=== PATIENT | female | born 2000 | race African-American/Black ===

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

== ENCOUNTER 2021-03-20 09:00 | Outpatient (RCR) | payer BC, SELFPAY ==
--- NOTE | 2021-03-20 09:00 | BH.SGPN.GN ---
Behaviors/Verbalizations/Mental Status: []Eye contact is good. Motor activity is appropriate. Appearance is casual. Speech is appropriate. Mood is depressed. Affect is congruent. Thoughts are linear and logical. No evidence of psychosis. Reviewed daily symptom tracker sheet with no reports of suicidal ideations, plan, or intent. Client Response/Progress/Benefit: []Client was engaged throughout group session, and reported her emotion as ?tired and detached?. This is the client's first day of IOP treatment. Client discussed attending different IOP treatments in the past, and wanting to brush up on past skills and work on motivation. Client identifies utilizing opposite action to help cope with being unmotivated. Client appeared to benefit from supportive group environment. Will continue IOP treatment to improve depression management skills to increase functioning. Narrative Note: []
--- NOTE | 2021-03-20 10:08 | BH.SGPN.GN ---
Behaviors/Verbalizations/Mental Status: []Eye contact is good. Motor activity is appropriate. Appearance is casual. Speech is Appropriate. Mood is depressed. Affect is flat, constricted. Thoughts are linear and logical. No evidence of psychosis. Client Response/Progress/Benefit: []Pt new to IOP tx, however did well to remain an active participant in group discussion AEB taking notes and providing some input throughout. Attentive during psychoeducation. Pt attentive as peers added their perspective on the definition of stigma as it relates to mental health. Pt participated in interactive group discussion on the topic and the potential impacts of stigma on seeking help, confidence, and relationships with others. Pt reflected that mental health stigma has ?kept me from taking the breaks that I need during school?. Reflected beliefs she allows stigma to maintain thoughts of ?I?m not a good enough.?. Benefited from increased awareness of mental health stigma and how it could impact patient. Will continue IOP to improve mood stability, increase healthy coping and engagement in activities she enjoys, and improve functioning in school. Narrative Note: []
--- NOTE | 2021-03-20 11:10 | BH.SGPN.GN ---
Behaviors/Verbalizations/Mental Status: []Client alert and oriented, casually dressed and groomed. Eye contact fair. Motor activity appropriate. Speech within normal limits. Affect flat, mood depressed. Thoughts linear, logical, no signs of hallucinations or delusions. Client Response/Progress/Benefit: []Client engaged participant AEB client providing some input during small group discussion, taking notes and listening attentively to others. Group brainstormed strategies to combat social and perceived stigma which included: educating others, no longer using negative language about mental illness, being vulnerable with supports, and attending support groups. Client shared one things she can do to combat stigma is to educate herself more on the topic of stigma and her mental health. Appeared to benefit from increasing awareness of strategies to combat stigma. Client?s first day of IOP. Will continue IOP tx to prevent decompensation, gain healthy coping skills, and improve functioning. Narrative Note: []
--- NOTE | 2021-03-20 14:33 | BH.COMM ---
Communication Note - Communication with Client Communication Note: met with pt to complete initial paperwork. No significant changes since pre-admission screening. Completed [place] Suicide Screening. Pt presents as low risk. Pt denies any active suicidal ideations, plan, or intent as of 03/20/21. Pt has history of self-injurious behaviors but denies any self-injury since middle school. Pt admits to having fleeting passive thoughts of , but she denies any thoughts of wanting to kill herself. Pt denies any history of suicide attempts. Future oriented and protective factors noted. No access to weapons. Does not present as imminent risk due to no active SI, plan, or intent.
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
--- NOTE | 2021-03-25 10:10 | BH.SGPN.GN ---
Behaviors/Verbalizations/Mental Status: []Client alert and oriented, well dressed and groomed. Eye contact fair. Motor activity appropriate. Speech within normal limits. Affect flat, mood depressed. Thoughts linear, logical, no signs of hallucinations or delusions. Client Response/Progress/Benefit: []Client responded well to session AEB client participating and group discussion and listening attentively to others. Group was primarily education based, with client participating in small group discussion regarding traits that promote resilience. Client?s group discussed keeping things in perspective, maintaining a hopeful outlook, self-care, and taking decisive action as strategies to increase resilience. Client appeared to benefit from increasing awareness of strategies to increase personal resilience. Progress noted in client providing insight during small group discussion. Will continue IOP treatment to prevent decompensation and increase depression management skills to increase functioning. Narrative Note: []
--- NOTE | 2021-03-25 11:12 | BH.SGPN.GN ---
Behaviors/Verbalizations/Mental Status: []Client alert and oriented, casually dressed and groomed. Eye contact good. Motor activity appropriate. Speech within normal limits. Affect constricted, mood irritable. Thoughts linear, logical, no signs of hallucinations or delusions. Client Response/Progress/Benefit: []Client responded well to session AEB completing the resilience worksheet provided. Client participated in the discussion of how each resiliency component can help increase personal resiliency and worked cooperatively with group to identify strategies to enhance each of the components discussed. Client reported she feels she is doing well with implementing the resilience component of ?self-awareness? and ?moving towards your goals.? Client reports she wants to improve the personal resilience component of ?making connections.? Client reports she prefers to do things alone, but this can also be a barrier to mental wellness. Client seemed to benefit from discussing strategies for improving personal resilience and identifying resilience traits client already possesses. Will continue IOP tx to reduce depressive symptoms, gain healthy coping skills, and improve school-related functioning. Narrative Note: []
[2021-03-25 11:25] VITALS: BP 131/75; PULSE 82
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
--- NOTE | 2021-03-25 13:20 | BH.DR.ITP ---
Initial Treatment Plan Patient Information Visit Information: ADMISSION DATE: EXPECTED LOS: 4-6 weeks Problems/Symptoms Problem #1:: Depression Symptom:: Sadness, low motivation, hopelessness, guilt, anhedonia, decreased concentration, recent passive thoughts of and passive suicidal ideation Problem #2:: Anxiety Symptom:: Rumination, worry, avoidance, nightmares, hypervigilance
--- NOTE | 2021-03-27 10:15 | BH.SGPN.GN ---
Behaviors/Verbalizations/Mental Status: []Client alert and oriented, casually dressed and groomed. Eye contact good. Motor activity appropriate. Speech within normal limits. Affect constricted, mood dysthymic. Thoughts linear, logical, no signs of hallucinations or delusions. Client Response/Progress/Benefit: []Pt frequently nodding during group discussions and attentive during psychoeducation. Took notes as group identified obstacles or potholes that hinder our ability to communicate in stressful situations. Group identified the following obstacles; shutting down, mind-reading, lashing out, and becoming defensive. Pt provided insight on how emotion and mood can impact effective communication. Pt took an active role during the activity and processed how she felt anxious to have her back to peers. Pt shared she also does not like working with people, but she used coping skills in the moment to manage frustration. Benefited from increased awareness on how our emotions impact our communication. Will continue in IOP to increase emotional regulation skills, reduce depressive symptoms, and improve functioning. Narrative Note: []
--- NOTE | 2021-03-27 13:18 | BH.MDN ---
Multi-Disciplinary Note - Note 60-min Individual Time Started:: 09:10 Date: 03/27/21 Purpose of session/treatment goals addressed:: Purpose of session was to assess pt's current symptoms and stressors, gather background information and identify goals for IOP level of care. Eye Contact:: Fair Motor Activity:: Restless Appearance:: Casual Speech:: Soft Mood:: Depressed Affect:: Flat Thoughts:: Linear, Logical, No evidence of hallucinations/delusions noted Staff Interventions:: rapport building, treatment planning, goal setting Client Response:: Pt stated she is not sure she will continue IOP because she feels she already knows the material being covered in group sessions. Pt reported she is willing to continue IOP for one more week before making her final decision on whether to continue program. Pt stated she has sought treatment because she is struggling academically this year due to her mental health. Pt reported she struggles with processing her problems which often leads to avoidance. Pt stated at the start of the fall her great aunt and uncle both . Pt reported has not processed this deaths. PT stated she knows it is probably impacting her but at this time doesn't feel emotional about it. Pt reported she has had to drop 2 classes this semester due to not doing well in the classes. Pt stated she moved her independent study class to next semester. Pt reported she struggles with attending her two classes consistently. Pt reported she has previously been diagnosed with Borderline Personality Disorder and she believes her symptoms are impacting her severely. Pt stated she did DBT group program 3 years ago which helped. Pt reported she struggles with connecting with people in friendships, often coming off detached and distant. Pt stated she is in a romantic relationship for over a year which she identifies as her first healthy relationship. Pt reported she would like to work on being able to have more meaningful friendships. Pt stated goals for treatment would be to improve ability to go to classes and complete assignments so she passes her two classes this semester. Pt identifeid goal for the week is to attend 3 out of 4 classes, have meeting with one of her professors about assignment extensions and creating plan for one of her class projects. Provided pt with homework about attachment. Risks/Concerns:: denies suicidal/homicidal ideation, plan or intention to date. Progress Toward Goals/Plan:: Progess limited. Pt continues to struggle with depressed and anxious symptoms impacting academic and social functioning. Pt's lack of committment to IOP could be barrier to treatment. Pt to continue IOP to increase utilization of healthy coping skills, challenge distorted thoughts and prevent decompensation. Time Stopped:: 10:10
--- NOTE | 2021-03-27 13:34 | BH.MTP_ITS ---
Master Treatment Plan - Patient Information Program Physician:: Dr. Garrett Primary Therapist:: Meg Granda, [facility] - Psychiatric Diagnoses Psychiatric Diagnoses:: 1. Major depressive disorder, recurrent, severe without psychosis. 2. Generalized anxiety disorder. 3. Rule out borderline personality disorder. 4. Primary support, school issues Diagnosis Code(s):: F33.2 - Estimated LOS Estimated LOS (in weeks):: 6 Problem/Goal #1 - Problem/Goal #1 Stated Goal:: Client will increase mood stability and improve management of depressive symptoms. Description of Barriers: pt is unsure about commitment to the program because previously did a IOP in high school and didn't know if she would benefit from another IOP. Pt's negative thought patterns, avoidance behavior, distorted thoughts, low motivation and feelings of detachment. Functional Impact: The patient is a 20-year-old single female with a history of ADHD, anxiety, depression and borderline personality disorder who was referred to the [facility] health IOP [facility] [place] for worsening symptoms of depression. Identified stressors as an aunt and uncle in recent months and school. She currently had 2 drops several classes in college due to her depression and anxiety but is achieving good grades in the classes she is still taking. Pt admits that she feels depressed or down more than 10 months out of the year in the past few years. She feels hopeless and guilty for skipping classes. She has been isolating herself and admits to anhedonia, low energy, decreased concentration, and passive thoughts of . She endorses that she is a worrier and ruminates negatively. She has been avoiding social circumstances. She is having panic attacks about 1 every other week. - Objectives Objective #1 Stated Objective: Client will learn and utilize 2-3 healthy coping strategies to better manage depressive and mood symptoms as shown by reduced DSM-5 scores. Interventions: Therapist will teach client various coping skills to manage symptoms and give tangible resources to use to regulate emotions. Therapist will use cognitive restructuring techniques and help client gain awareness of negative thoughts that reinforce depressive cycles. Discharge Criteria: Client will have met this goal when can identify at least 2 healthy coping skills and report successful management of mood with use of skills. Target Date: 05/01/21 Review Date: 04/17/21 Objective #2 Stated Objective: Pt will decrease depressive symptoms AEB pt?s score on the DSM 5 cross-cutting measure and improve pt?s daily functioning. Interventions: Through groups and individual therapy, pt will be provided with education on cognitive distortions, mistaken beliefs, and identifying and combating negative self-talk. Therapist will assist pt with getting back into the activities she once enjoyed as well as increasing healthy coping strategies. Discharge Criteria: Pt will have met this goal when pt?s score on the DSM 5 cross cutting measure for depression has been decreased and per pt?s report daily functioning has improved. Target Date: 05/01/21 Review Date: 04/17/21 Problem/Goal #2 - Problem/Goal #2 Stated Goal:: Client will reduce overall frequency, intensity, and duration of anxiety to improve functioning. Description of Barriers: pt is unsure about commitment to the program because previously did a IOP in high school and didn't know if she would benefit from another IOP. Pt's negative thought patterns, avoidance behavior, distorted thoughts, low motivation and feelings of detachment. Functional Impact: The patient is a 20-year-old single female with a history of ADHD, anxiety, depression and borderline personality disorder who was referred to the [facility] behavioral health IOP program by her outpatient psychiatrist in [place] for worsening symptoms of depression. Identified stressors as an aunt and uncle in recent months and school. She currently had 2 drops several classes in college due to her depression and anxi ety but is achieving good grades in the classes she is still taking. Pt admits that she feels depressed or down more than 10 months out of the year in the past few years. She feels hopeless and guilty for skipping classes. She has been isolating herself and admits to anhedonia, low energy, decreased concentration, and passive thoughts of . She endorses that she is a worrier and ruminates negatively. She has been avoiding social circumstances. She is having panic attacks about 1 every other week. - Objectives Objective #1 Stated Objective: Client will learn and implement 2-3 calming skills to reduce overall anxiety and manage anxiety. Interventions: Therapist will teach the client calming/relaxation skills (e.g., muscle relaxation, mindful breathing) and how to discriminate better between relaxation and tension; teach the client how to apply these skills to her daily life. Discharge Criteria: Client will have met this goal when can identify and utilize at least 2 healthy coping skills that successfully help manage anxious symptoms. Target Date: 05/01/21 Review Date: 04/17/21 Objective #2 Stated Objective: Pt will decrease anxious symptoms AEB pt?s score on the DSM 5 cross-cutting measure improve pt?s daily functioning. Interventions: Through groups and individual therapy, pt will be provided education about anxiety?s impact on body and common physiological reaction to anxiety. Therapist will teach pt appropriate breathing techniques and build healthy coping skills to manage daily anxieties. Discharge Criteria: Pt will have met this goal when pt?s score on the DSM 5 cross cutting measure for anxiety has been decreased and per pt?s report daily functioning has improved. Target Date: 05/01/21 Review Date: 04/17/21
--- NOTE | 2021-03-30 09:05 | BH.SGPN.GN ---
Behaviors/Verbalizations/Mental Status: [] Eye contact is good. Motor activity is appropriate. Appearance is casual. Speech is Appropriate. Mood is depressed/irritable. Affect is flat. Thoughts are linear and logical. No evidence of psychosis. Reviewed daily check in sheet and pt reports 1/5 for suicidal thoughts and 0/5 for intent. Client Response/Progress/Benefit: [] Pt participated at times during group discussion on improving sleep. Attentive. Daily symptom tracker notes 3/5 for depression and anxiety. Mental health wins included Weekend was OK. Shared that she completed skills such as opposite action and spent time with friends. Was more social than usual. Poor sleep last night. Ruminating on upcoming mid-term assignments. Reports that she has no motivation or energy to complete her school work. Group provided some feedback and suggestions. Minimal progress noted. Benefited from group support, encouragement, and feedback. Will continue in IOP to maintain safety, increase healthy coping, and prevent decompensation. Narrative Note: []
--- NOTE | 2021-03-30 09:58 | BH.SGPN.GN ---
Behaviors/Verbalizations/Mental Status: []Client alert and oriented, casually dressed and groomed. Eye contact fair. Motor activity appropriate. Speech within normal limits. Affect flat, mood depressed. Thoughts linear, logical, no signs of hallucinations or delusions. Client Response/Progress/Benefit: []Client responded well to session AEB contributing to group discussion and listening attentively to others. Client discussed not being able to function as well when she does not perform self-care. Client connected with boundaries as a type of self care, stating that without boundaries there would be no healthy relationships. Client participated in small group discussion regarding debunking the myths of self-care. Client?s group discussed the myths of having more important things to do, self care taking too much time, and self care has to be fun. Client?s group discussed making self care a priority, choosing self care activities that can be done while doing other things, and that self care is not always fun as the realities of self care. Client appeared to benefit from further understanding of the importance of self-care and options. Progress noted in client sharing personal examples in group. Will continue IOP treatment to increase comfortability with being vulnerable, and prevent decompensation. Narrative Note: []
--- NOTE | 2021-03-30 11:01 | BH.SGPN.GN ---
Behaviors/Verbalizations/Mental Status: []Client alert and oriented, casually dressed and groomed. Eye contact fair to good. Motor activity appropriate. Speech within normal limits. Affect constricted, mood depressed, irritable. Thoughts linear, logical, no signs of hallucinations or delusions. Client Response/Progress/Benefit: []Client mostly engaged participant AEB taking notes and providing input when prompted during discussion. This is progress as pt often struggles with engaging in discussion portions of session. Attentive throughout group discussion on the various areas of self-care, benefits, and types of self-care activities for each area. Client completed worksheet which identified current self-care practices and what self-care activities client wants to start using. Client noted she is doing best in the areas of financial, physical, and psychological self-care. Indicated that she would like to begin improving in spiritual self-care. Identified that she could begin doing so by beginning to challenge herself daily to do new or thought-provoking activities. Noted this would help to ground her and give her something healthy to focus on, allow for personal growth, and begin to improve moments of happiness. Appeared to benefit from completing the self-care evaluation and gaining insights into current self-care practices, as well as identifying areas in which she would like to improve upon. Will continue IOP tx to continue to promote mood stability, continue to improve self-care and stress management skills, as well as prevent decompensation. Narrative Note: []
--- NOTE | 2021-04-01 09:03 | BH.SGPN.GN ---
Behaviors/Verbalizations/Mental Status: []Client alert and oriented, casually dressed and groomed. Eye contact fair to good. Motor activity appropriate. Speech within normal limits. Affect congruent, mood anxious, depressed. Thoughts linear, logical, no signs of hallucinations or delusions. Reviewed client?s symptom tracker, risk for suicidal ideation reported as a 1/5 which is consistent with pt baseline, denies plan or intent as of 04/01/21. Client Response/Progress/Benefit: []Client receptive to session, attentive and willing to participate throughout. Client reports feeling ?anxious and tired this morning. Shared that this is both a positive and a stressor as she is tired because she has begun attending her classes more consistently but is stressed as now she feels she has less energy due to waking up earlier. Reports sleep has been an ongoing stress. Went on to discuss making efforts to improve communication with others. Noted this is also a positive as well as stressor, indicating that communicating is hard for her due to struggling with emotion regulation. Shared that she has a hard time finding the skills that help her effectively maintain emotionally regulated which in turn impedes ability to effectively communicate in the moment. Open to supportive feedback provided by the group. Shared trying to use opposite action, music, and walking away when feeling overwhelmed but has had limited success. Pt struggles with believing that her coping skills are going to be helpful in the moment which may impede her ability to effectively utilize them. Appeared to benefit from supportive group environment. Recommended continued IOP tx to improve mood stability and healthy communication, as well as prevent decompensation. Narrative Note: []
--- NOTE | 2021-04-01 10:10 | BH.SGPN.GN ---
Behaviors/Verbalizations/Mental Status: []Client alert and oriented, casually dressed and groomed. Eye contact fair. Motor activity appropriate. Speech within normal limits. Affect constricted, mood depressed. Thoughts linear, logical, no signs of hallucinations or delusions. Client Response/Progress/Benefit: []Client responded well to session AEB client contributing to session and listening attentively to others. Client nodded and appeared connected to the topic of perspective. Client participated in the photo activity, providing both positive and negative aspects of the photo. Client discussed her perspective of treatment being helpful in the short-term, but not making lasting change in her life. Progress noted in client?s increased contribution. Will continue IOP treatment to prevent decompensation, and increase client?s awareness and application of healthy coping skills to increase overall functioning. Narrative Note: []
--- NOTE | 2021-04-01 11:10 | BH.SGPN.GN ---
Behaviors/Verbalizations/Mental Status: []Client alert and oriented, neatly dressed and groomed. Eye contact fair. Motor activity appropriate. Speech within normal limits, quiet. Affect constricted, mood irritable. Thoughts linear, logical, no signs of hallucinations or delusions. Client Response/Progress/Benefit: []Pt did well to remain attentive throughout session, AEB providing input throughout discussion. Did well to take notes and complete worksheet provided. Engaged as group reviewed the importance of taking a strengths-based approach in order to foster a healthier perspective and better manage mental health symptoms. Completed strengths exploration worksheet and identified personal strengths to include: ambition, assertiveness, and leadership skills. Pt reports her strengths keep her driven and seek out support. Pt reported she will recognize her strengths more often by reflecting on the highs of the week with her supports. Benefited from identifying personal strengths and strategies for enhancing use of identified strengths. Pt to continue IOP tx to improve emotional regulation skills and increase daily functioning. Narrative Note: []
== END 2021-04-14 23:59 ==
LOC: BHIOP 09:00
PROVIDERS: Referring Provider Psychiatry & Neurology Psychiatry; Visit Provider Psychiatry & Neurology Psychiatry
DX: F33.2 Major depressive disorder, recurrent severe without psychotic features (principal); F41.1 Generalized anxiety disorder; Z79.899 Other long term (current) drug therapy; F90.9 Attention-deficit hyperactivity disorder, unspecified type
CPT/HCPCS: S9480; 90837; 90853

== ENCOUNTER 2021-04-15 09:00 | Outpatient (RCR) | payer BC, SELFPAY ==
[2021-04-15 00:38] VITALS: BP 131/75; PULSE 82
--- NOTE | 2021-04-15 11:20 | BH.SGPN.GN ---
Behaviors/Verbalizations/Mental Status: []Eye contact is good. Motor activity is appropriate. Appearance is casual. Speech is Appropriate. Mood is dysthymic. Affect is constricted. Thoughts are linear and logical. No evidence of psychosis. Client Response/Progress/Benefit: []Pt was an engaged participant AEB pt providing input throughout group discussion and activity. Attentive during psychoeducation on cognitive distortions not discussed in previous group. Pt was an actively engaged participant in Cognitive Distortions Jeopardy, providing input and suggestions to small group. Utilized notes from psychoeducation on cognitive distortions to assist peers in correctly answering questions. Experiential activity was beneficial as it provided a way for patient to review notes and handouts during psychoeducation to answer questions for the game. Will continue in [facility] tx to further improve application healthy coping skills for more consistent management of symptoms, improve communication with supports, as well as further improve ability to manage stressors impacting ability to function at baseline.
--- NOTE | 2021-04-15 11:31 | BH.MDN ---
Multi-Disciplinary Note - Note 60-min Individual Time Started:: 09:10 Date: 04/15/21 Purpose of session/treatment goals addressed:: Purpose of session was to address goals 1 and 2 from MTP. Eye Contact:: Fair Motor Activity:: Appropriate Appearance:: Casual Speech:: Appropriate Mood:: Dysthymic Affect:: Constricted Thoughts:: Linear, Logical, No evidence of hallucinations/delusions noted Staff Interventions:: thought challenging, CBT techniques, strengths perspective, goal setting, taught coping skills - body scan meditation, grounding tools (engaging senses) Client Response:: Pt reported she noticed she was still upset with her friend that backed out of the [facility] the last minute. Pt stated instead of staying passive and being angry she chose to communicate to the friend how she felt. Pt reported it ended up being a really good discussion and the friend was apologetic and could see pt's point of view. Pt stated she ended up going home for the holiday because she had a cold. Pt reported because she was mostly isolated her visist home wasn't as bad as she expected. Reviewed homework from last individual session. In homework pt identiifed she had a avoidance cycle becuase she believes people do not care about her. Pt reported willingness to work on increasing closer relationships to decrease her avoidance behaviors. Pt stated her goal is to connect with a friend that she wants to move in with for senior year. Pt reported she feels more comfortable opening up to this friend. 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 Agreed to complete worksheet to help pt create proactive plan for if runs for [employer] and doesn't get chosen. Pt stated need to build her self-soothing skills in the moment. Reviewed healthy self-soothing skills like body scan and other grounding tools. Therapist discussed importance of visual aids could be helpful to remind pt of skills when having intense emotional reaction. Risks/Concerns:: denies suicidal/homicidal ideation, plan or intention to date. future focused. no access to firearms or stockpile medications. Progress Toward Goals/Plan:: Progress noted with pt reporting use of skills like direct communication to others vs dwelling on negative emotions. Pt expressing openness to revisit skills that have helped in the past. Pt showing improved functioning at school AEB pt advocating with professors to get extensions on assignments and working on plans to pass the semester. Additional progress noted with pt demonstrating increased self-awareness of distorted thoughts and stopping self from engaging in self-destructive behaviors. Pt continues to struggle with feeling detached and disconnected from others. Reports significant depressed symptoms. Pt to continue IOP to continue use of healthy skills, challenge distorted thoughts and prevent decompensation. Time Stopped:: 10:20
--- NOTE | 2021-04-15 13:11 | BH.TPR ---
Treatment Plan Review Date of Admission:: 03/20/21 Date of Treatment Plan Review:: 04/15/21 Patient's Response to Treatment:: Pt's response to treatment has improved since starting IOP AEB providing input to group sessions, connecting with group material and completing homework from individual sessions. Pt consistently attends IOP sessions. Status of Current Problems and Symptoms: ongoing problems. Problem #1 Problem Name:: Depression Team Recommendations:: Team recommends to focus on promoting closer relationships to help build healthier support system. Problem #2 Problem Name:: Anxiety Team Recommendations:: Team recommends
--- NOTE | 2021-04-17 09:00 | BH.SGPN.GN ---
Behaviors/Verbalizations/Mental Status: [] Eye contact is good. Motor activity is appropriate. Appearance is casual. Speech is Appropriate. Mood is depressed. Affect is flat. Thoughts are linear and logical. No evidence of psychosis. Reviewed daily check in sheet and no reports of suicidal ideations or intent. Client Response/Progress/Benefit: [] Pt participated at times during the group discussion. Attentive. Shared that she has been having a great deal of ups and downs in the past few days. Reports she has been highly emotional and is breaking down everyday. She discussed her recent stressors and emotions and believes that these feel like setbacks. Group provided a different perspective, challenge her distortions, and helped reframe which was beneficial. Pt believes she had regressed since last session. Benefited from group support, encouragement, and feedback. Will continue in IOP to maintain gains, increase healthy coping, and prevent decompensation. Narrative Note: []
--- NOTE | 2021-04-20 09:04 | BH.SGPN.GN ---
Behaviors/Verbalizations/Mental Status: []Client alert and oriented, casually dressed and groomed. Eye contact fair to good. Motor activity appropriate. Speech within normal limits, soft. Affect flat, mood dysthymic and anxious. Thoughts linear, logical, no signs of hallucinations or delusions. Reviewed client?s symptom tracker, no risk for suicidal ideation, plan, or intent as of 04/20/21 Client Response/Progress/Benefit: []Client responded well to session, providing feedback and willing to process with group. Client reports feeling indifferent? today and noted this is in part due to it being final week and client is focused on completing the necessary projects to finish the semester. Discussed creating a schedule for herself to accomplish all of the remaining tasks and indicated that having a clear plan is often helpful for managing her stress. Shared she has taken on some additional non-school related responsibilities but did not share further. Receptive of discussion surrounding balance and importance of self-care especially during times of increased stress. Appeared to benefit from reflecting on skills used to maintain balance in the past. Will continue IOP tx to continue to promote healthy change behaviors, improve consistent use of emotion regulation skills, and prevent decompensation. Narrative Note: []
--- NOTE | 2021-04-20 10:13 | BH.SGPN.GN ---
Behaviors/Verbalizations/Mental Status: []Client alert and oriented, neatly dressed and groomed. Eye contact good. Motor activity appropriate. Speech within normal limits. Affect flat, mood euthymic. Thoughts linear, logical, no signs of hallucinations or delusions. Client Response/Progress/Benefit: []Pt was well engaged in group AEB taking notes, providing input, and listening attentively throughout. Group identified potential barriers to goal setting to include: lack of confidence, lack of resources, fear of success, fear of change, and setting unrealistic expectations. Group also worked together to identify benefits to goal-setting which include: improves relationships, increases motivation, personal growth, and improves mental health. Pt reported she often struggles with telling herself ?I should be able to get good grades or do well in sports? which makes it hard for pt to give herself credit. Benefited from increased awareness of benefits and barriers to goal-setting. Progress noted as client reports improve mood over the weekend. Will continue IOP tx to promote mood stability and further increase emotional regulation skills. Narrative Note: []
--- NOTE | 2021-04-20 11:10 | BH.SGPN.GN ---
Behaviors/Verbalizations/Mental Status: []Client alert and oriented, casually dressed and groomed. Eye contact fair to good. Motor activity appropriate. Speech within normal limits. Affect constricted, mood dysthymic. Thoughts linear, logical, no signs of hallucinations or delusions. Client Response/Progress/Benefit: []Pt was an active participant in group discussions and activities. Engaged in activity. Pt identified a SMART goal for the next week is to: using allotted time in Portuguese class to complete her paper by Tuesday. Pt reported this would benefit her mental health by ?reducing stress and allow me to complete the assignment well?. Identified anxiety as a potential barrier to completing this goal. Pt able to identify several solutions, such as thinking of positives and taking medications, that can help overcome identified barriers. Benefited from group by being able to utilize SMART educate to create a goal. Pt to continue IOP to challenge negative thought patterns, continue use of healthy coping skills, and prevent decompensation.
--- NOTE | 2021-04-20 14:36 | BH.MDN ---
Multi-Disciplinary Note - Note 60-min Individual Time Started:: 12:10 Date: 04/20/21 Purpose of session/treatment goals addressed:: Purpose of session was to address goals 1 and 2 from [facility]. Eye Contact:: Good Motor Activity:: Appropriate Appearance:: Casual Speech:: Appropriate, Soft Mood:: Euthymic Affect:: Constricted Thoughts:: Linear, Logical, No evidence of hallucinations/delusions noted Staff Interventions:: CBT techniques, discharge planning, strengths perspective, goal setting, other - reviewed coping skills Client Response:: Client reported she completed pros and cons list about running for [employer] her [employer] with her girlfriend and made the decision to not run. Client stated she is happy with her decision because she already has a busy schedule for next semester and doesn't want to sabotage by adding more responsibilities. Client reported she is feeling happy that she had her first good weekend from all semester. Client stated she went out with her girlfriend to some parties and they both were able to have fun. Client stated feeling more ready to discharge from [facility]. Stated once her finals are done she believes that will help decrease stress significantly. Client reported she'd like to focus on creating reasonable expectations to prepare for her holiday break from school and for expectations for next semester. Client stated she has been having conversations about self-soothing skills/strategies that help client calm down. Client reported including her girlfriend in the conversation is important so her girlfriend can remind her of skills. Client identified some goals are break to include: drinking water daily, working out daily, hanging out with friends and allowing self to have fun. Client will work on creating realistic expectations for next semester. Risks/Concerns:: Denies suicidal/homicidal ideation, plan or intention to date. future focused. Progress Toward Goals/Plan:: Progress noted with client reporting improved mood, increased socialization and communicating more openly with her girlfriend. Client feeling more ready for discharge from [facility] in two weeks. Client showing more consistency with using healthy coping skills, challenging distorted thoughts and using supports. Client to continue IOP to maintain gains, continue to challenge distorted thoughts and prevent decompensation. Time Stopped:: 13:10
--- NOTE | 2021-04-22 09:03 | BH.SGPN.GN ---
Behaviors/Verbalizations/Mental Status: []Client alert and oriented, casually dressed and groomed. Eye contact good. Motor activity appropriate. Speech within normal limits. Affect flat, mood anxious. Thoughts linear, logical, no signs of hallucinations or delusions. Reviewed client?s symptom tracker, no risk for suicidal ideation, plan, or intent as of 04/22/21 Client Response/Progress/Benefit: C[]Client responded well to session, quiet, but participating when prompted. Client reports feeling stressed this morning due to finals for college approaching COVID. Client shared she her stress about school work has triggered negative thinking patterns and self-doubt. Client also feels anxious because someone she knows tested positive for COVID and client is fearful she will get it as well. Normalized anxiety about the unknown and reviewed self-care strategies. Client struggled at first to identify self-care and coping skills to use, but client did identify some emotional regulation skills to use. Appeared to benefit from challenging negative thinking in the moment. Will continue IOP tx to promote mood stability and reinforce healthy coping skills. Narrative Note: []
--- NOTE | 2021-04-22 10:10 | BH.SGPN.GN ---
Behaviors/Verbalizations/Mental Status: []Client alert and oriented, casually dressed and groomed. Eye contact fair to good. Motor activity appropriate. Speech within normal limits. Affect constricted, mood dysthymic and anxious. Thoughts linear, logical, no signs of hallucinations or delusions. Client Response/Progress/Benefit: []Pt was a more engaged participant in group discussion than prior groups, displaying progress. Attentive throughout discussion on communication. Pt participated in providing insight into the benefits of effective communication on mental health which included; helps us set healthy boundaries, get needs met, improve overall mental health and quality of life, reduce stress, and make time for self-care. Pt along with peers able to identify ways that communication can be misinterpreted and the potential costs this can have mental health and relationships. Pt remained engaged and appeared to benefit from discussion on the various communication styles, as well as reviewing the importance of communicating effectively to improve mental wellness. Shared connecting most with passive communication, identifying that this has led to isolation and reinforcing negative thoughts of ?what?s the point?. Progress noted in increased insight regarding impacts of current communication styles on pt mental health and relationships. Will continue IOP tx to continue to improve emotion regulation and healthy communication skills, promote self-care and prosocial activities, as well as prevent decompensation. Narrative Note: []
--- NOTE | 2021-04-22 11:10 | BH.SGPN.GN ---
Behaviors/Verbalizations/Mental Status: []Client alert and oriented, casually dressed and appropriately groomed. Eye contact good. Motor activity appropriate. Speech WNL. Affect constricted, mood euthymic. Thoughts linear, logical, no signs of hallucinations or delusions. Client Response/Progress/Benefit: []Client responded well to session AEB client listening attentively to others and providing input during group discussion on the pay offs and costs of the different communication styles. Client stated she is a passive communicator with family. Client stated this isolates her and decreases support. Client reported she has become more assertive with others in her life. Client stated I take it until I can't anymore. Attentive during psychoeducation on interpersonal DBT skill KRISTEN and client selected a communication skill to practice. Client stated she wants to continue working on asserting thoughts and feelings with her supports. Client seemed to benefit from increasing awareness of healthy strategies to improve communication. Will continue IOP tx to maintain gains, continue use of healthy coping and prevent decompensation. Narrative Note: []
--- NOTE | 2021-04-24 09:07 | BH.SGPN.GN ---
Behaviors/Verbalizations/Mental Status: []Eye contact is good. Motor activity is appropriate. Appearance is casual. Speech is Appropriate. Mood is euthymic and hopeful. Affect is congruent. Thoughts are linear and logical. No evidence of psychosis. Reviewed daily check in sheet and no reports of suicidal ideations or intent. Client Response/Progress/Benefit: []Pt responded well to session AEB sharing thoughts and feelings and appearing to listen attentively to peer. Pt reported her stress level has decreased since finishing her paper for one of her classes. Pt stated her motivation is starting to improve and she has increased desire to do more things. Pt reported she hung out with a friend and is looking forward to the holiday break from school. Pt stated she has a gameplan to help her maintain progress while on break by exercising, drinking plenty of water, hanging out with friends and eating healthy. Pt identified stressor as trying to figure out logistics of getting home since she doesn't like to drive on the highway. Pt to continue IOP to maintain gains, continue use of healthy coping and prevent decompensation.
--- NOTE | 2021-04-24 10:08 | BH.SGPN.GN ---
Behaviors/Verbalizations/Mental Status: []Client alert and oriented, casually dressed and groomed. Eye contact good. Motor activity appropriate. Speech within normal limits, quiet. Affect flat, mood depressed. Thoughts linear, logical, no signs of hallucinations or delusions.[] Client Response/Progress/Benefit: []Client engaged during session AEB client contributing to discussion when prompted and completing worksheet, however remained primarily passive in participation. Connected with discussion on crisis and how coping with external crises by using unhealthy coping skills could result in a personal crisis. Group reflected on the importance of having awareness of personal warning signs in order to prevent reaching crisis point. Group identified potential warning signs for crisis and client completed the personal warning signs worksheet. Client identified personal crisis warning signs to include: loss of interest, feeling disconnected, isolating, unusual drop in functioning. Client benefited by increasing awareness of what leads to crisis and personal warning signs. Client will continue IOP to continue to promote communication with supports, encourage use of healthy emotion regulation skills, as well as prevent decompensation. Narrative Note: []
--- NOTE | 2021-04-24 11:10 | BH.SGPN.GN ---
Behaviors/Verbalizations/Mental Status: []Client alert and oriented, casually dressed and groomed. Eye contact fair. Motor activity appropriate. Speech within normal limits. Affect flat, mood euthymic. Thoughts linear, logical, no signs of hallucinations or delusions. Client Response/Progress/Benefit: []Client responded well to session as evidenced by client listening attentively to others and providing strategies during small group discussion. Client identified warning signs for crisis and gained further awareness of earliest warning signs. Client created a crisis action plan to help client better manage warning signs for crisis. Client?s action plan for loss of interest included: taking 30 minutes a day to engage in old hobbies, going outside, and trying something new twice a month. Client appeared to benefit from creating a crisis action plan and increasing self-awareness. Client to continue IOP tx to further increase mood stability and reinforce healthy coping skills. Narrative Note: []
--- NOTE | 2021-04-27 09:07 | BH.SGPN.GN ---
Behaviors/Verbalizations/Mental Status: []Client alert and oriented, casually dressed and groomed. Eye contact fair to good. Motor activity appropriate. Speech within normal limits. Affect congruent, mood euthymic. Thoughts linear, logical, no signs of hallucinations or delusions. Reviewed client?s symptom tracker, no risk for suicidal ideation, plan, or intent as of 04/27/21 Client Response/Progress/Benefit: []Client responded well to session, providing some input to peers and willing to process with group. Client reports feeling restless? today as she is scheduled to get her vaccine booster shot and is worried about how it will impact her ability to study for finals tonight. Shared plans to study earlier in the day as she has heard side effects from the shot don?t typically take effect until later in the day. Did well to identify current areas of progress which included being more social with friends over the weekend and challenging herself to spend time with friends despite urges to isolate or cancel plans. Shared she had been tempted to when they went to a restaurant where she was unable to eat many of the items on the menu due to now being on a gluten-free diet. Noted that she was able however to adjust her expectations and still have an enjoyable time. Appeared to benefit from identifying areas in which she has made. Will continue IOP tx to continue to promote healthy change behaviors, improve consistent use of emotion regulation skills, and prevent decompensation. Narrative Note: []
--- NOTE | 2021-04-27 10:15 | BH.SGPN.GN ---
Behaviors/Verbalizations/Mental Status: []Client alert and oriented, neatly dressed and groomed. Eye contact good. Motor activity appropriate. Speech within normal limits. Affect constricted, mood euthymic. Thoughts linear, logical, no signs of hallucinations or delusions. Client Response/Progress/Benefit: []Client passive participate AEB no contributions during discussion, however appeared to listen attentively to peers. Listened to discussion of things that can keep people feeling trapped or stuck in life including: avoidance, decreased confidence, give up easily and not try. Group discussed the connection between thoughts, emotions, and behaviors as well as how negative thinking can keep a person stuck. Client attentive during psychoeducation on maintenance cycles. Client able to identify negative thoughts that have kept client stuck. Appeared to benefit from gaining awareness of how negative thoughts reinforce mental health symptoms and keep people stuck. Will continue IOP tx to continue improve communication, challenge distorted thoughts and prevent decompensation.
--- NOTE | 2021-04-29 09:00 | BH.SGPN.GN ---
Behaviors/Verbalizations/Mental Status: []Eye contact is fair. Motor activity is appropriate. Appearance is casual. Speech is Appropriate. Mood is euthymic and hopeful. Affect is congruent. Thoughts are linear and logical. No evidence of psychosis. Reviewed daily check in sheet and no reports of suicidal ideations or intent. Client Response/Progress/Benefit: []Pt responded well to session AEB pt listening attentively to peers and sharing thoughts with group. Pt reported mood has improved drastically since complete school semester yesterday. Pt stated mental health positive as communicating more openly and directly with supports instead of mind reading and making assumptions. Pt reported improved communication has been helping improve relationships. Pt identified additional mental health positive as saying yes to doing things with others more often. Pt identified current stressor is her family dog is sick. Pt seemed to benefit from sharing thoughts and feelings. Pt to continue IOP to maintain gains, continue use of healthy coping and prevent decompensation. Narrative Note: []
--- NOTE | 2021-04-29 10:15 | BH.SGPN.GN ---
Behaviors/Verbalizations/Mental Status: []Client alert and oriented, casually dressed and groomed. Eye contact fair. Motor activity appropriate. Speech within normal limits. Affect flat, mood euthymic. Thoughts linear, logical, no signs of hallucinations or delusions. Client Response/Progress/Benefit: []Client engaged in session AEB taking notes, contributing to discussion, and providing examples throughout. Client assisted group with identifying benefits of setting boundaries such as ?making a life best for you,? preventing more harm, less anxiety and stress, and better quality of life. Client also identified personal barriers to setting boundaries such as struggling when others do not respect boundaries. Listened during psychoeducation on different types of boundaries. Client seemed to benefit from increased awareness of how boundaries impact mental health and the different types of boundaries there are. Progress noted in client?s self-report of improved communication within her relationships. Will continue IOP tx promote gains and reinforce healthy emotional regulation skills. Narrative Note: []
--- NOTE | 2021-04-29 15:03 | BH.MDN ---
Multi-Disciplinary Note - Note 60-min Individual Time Started:: 11:05 Date: 04/29/21 Purpose of session/treatment goals addressed:: Purpose of session was to identify treatment progress, create maintenance plan and review aftercare plans. Eye Contact:: Good Motor Activity:: Appropriate Appearance:: Casual Speech:: Appropriate Mood:: Euthymic Affect:: Congruent Thoughts:: Linear, Logical, No evidence of hallucinations/delusions noted Staff Interventions:: discharge planning, strengths perspective, other - maintenance plan Client Response:: Pt stated she was able to have a really good weekend and stated she was able to enjoy herself and have fun. Pt reported she can note progress with improved mood, improved communication, able to finish classes this semester, and improved outlook on her future. Pt worked with therapist to identify maintenance plan to help once completes [facility]. Pt identified daily tasks include: drinking water, out of bed by noon, taking all medications, brushing teeth, reaching out to supports, and being active. Pt identified weekly tasks to include: getting outside, hangout with someone, exercise, and weekly check-in on symptoms. Pt stated additional things that can help include: refelcting on moods, review warning signs, openly communciate with supports, and engage in intellectual conversations. Risks/Concerns:: Pt denies suicidal ideation, plan or intention to date. future focused. Progress Toward Goals/Plan:: Pt has shown treatment progress with improved emotion regulation, decreased depression, increased enjoyment in activities, improved communication and ability to challenge distorted thought patterns. Pt had been given referrals for local outpatient counseling but pt did not schedule with anyone due to returning home for college winter. Pt does have a therapist and psychiatrist established in [place], however expressed interest with establishing with a therapist in [place]. Pt reports her plan is to schedule with therapist when returns for spring. Pt states she also wants to join [facility] aftercare group program on when she returns from winter. Pt is to discharge from [facility] this week. Time Stopped:: 12:00
--- NOTE | 2021-05-01 09:05 | BH.SGPN.GN ---
Behaviors/Verbalizations/Mental Status: [] Eye contact is good. Motor activity is appropriate. Appearance is casual. Speech is Appropriate. Mood is anxious. Affect is congruent. Thoughts are linear and logical. No evidence of psychosis. Reviewed daily check in sheet and no reports of suicidal ideations or intent. Client Response/Progress/Benefit: [] Pt was an active participant in group discussion. Attentive. Provided appropriate feedback. Emotion for today is anxious. Shared that she is returning home to [place] over the holiday break which is causing some anxiety due to change in routine and some family stressors. Normalized his anxiety and was able to identify that she has already developed a new routine when she returns home which included mental health skills. Shared that today is her last day in the IOP program and reports I actually benefited quite a bit from this program. The groups that were the most helpful included cognitive distortions and mood tracking. Progress noted per pt report. Plan is to discharge from [facility] today. She plans on continuing with aftercare group here once she returns from holiday. Narrative Note: []
--- NOTE | 2021-05-01 10:10 | BH.SGPN.GN ---
Behaviors/Verbalizations/Mental Status: []Eye contact is good. Motor activity is appropriate. Appearance is casual. Speech is Appropriate. Mood is dysthymic. Affect is constricted. Thoughts are linear and logical. No evidence of psychosis. Client Response/Progress/Benefit: []Pt was an active participant in group discussion AEB taking notes and providing input throughout. Attentive during psychoeducation reviewing internal and external obstacles and provided examples throughout. Participated in the reflection activity in which clients toma pictures depicting their current and desired reality and shared with the group. Pt stated in current reality feels like things can either go really well or very bad and has limited support network. Pt stated she is currently looking at establishing realistic expectations as a way to help her move towards desired reality. Reported desired reality is to increase support network, feel more optimistic, and improve ability to relax. Benefited from group by increasing current awareness and expectations for progress. Pt to continue IOP to improve communication, set realistic expectations and prevent decompensation.
--- NOTE | 2021-05-01 11:10 | BH.SGPN.GN ---
Behaviors/Verbalizations/Mental Status: []Client alert and oriented, casually dressed and groomed. Eye contact good. Motor activity appropriate. Speech within normal limits. Affect constricted, mood anxious and dysthymic. Thoughts linear, logical, no signs of hallucinations or delusions. Client Response/Progress/Benefit: []Client mostly engaged during activity, providing group with ideas on how to cope with internal barriers that keep clients stuck from moving towards goals. Client able to identify personal barriers to their desired reality, which included: lack of motivation, limited supports, past trauma, and negative self-talk. Client wants to work on reducing negative thinking by reminding herself to highlight small wins. Reports this will aid in further improving ability to improve self-talk as well. Benefited from group by identifying personal obstacles and potential solutions to desired reality. Client will continue IOP tx to reduce depressive symptoms, improve overall functioning, and decrease negative thinking. Narrative Note: []
--- NOTE | 2021-05-01 12:25 | BH.DS_ITS ---
Discharge Summary - Demographics Date of Admission:: 03/20/21 Discharge Date: 05/01/21 Presenting Problems at Admission:: The patient is a 20-year-old single female with a history of ADHD, anxiety, depression and borderline personality disorder who was referred to the [facility] behavioral health IOP program by her outpatient psychiatrist in [place] for worsening symptoms of depression. Identified stressors as an aunt and uncle in recent months and school. She currently had 2 drops several classes in college due to her depression and anxiety but is achieving good grades in the classes she is still taking. Pt admits that she feels depressed or down more than 10 months out of the year in the past few years. She feels hopeless and guilty for skipping classes. She has been isolating herself and admits to anhedonia, low energy, decreased co ncentration, and passive thoughts of . She endorses that she is a worrier and ruminates negatively. She has been avoiding social circumstances. She is having panic attacks about 1 every other week. Discharge Diagnoses:: 1. Major depressive disorder, recurrent, severe without psychosis F33.2. 2. Generalized anxiety disorder. 3. Rule out borderline personality disorder. 4. Primary support, school issues Reason for Discharge:: Pt has made progress on treatment goals, has received maximum benefit from program and no longer meets criteria for IOP level of care. - Treatment Progress During Treatment & Response: Pt has shown treatment progress since starting IOP AEB pt's DSM 5 cross cutting measure scores at discharge. Pt's DSM 5 scores indicate a 50% reduction in depression, 56% reduction in anxiety, and an overall 40% reduction in symptoms. Pt has shown progress with increased self-awareness, improved communication with supports, decreased shutting down, reporting increased enjoyment in activities and challenging negative thoughts. Pt consistently attending IOP sessions. Pt was mostly passive participant in group sessions, however provided more contributions during group in last two weeks. Pt engaged in individual sessions and completed homework. Issues Still to be Addressed:: Pt could benefit from continued work on identifying and challenging distorted thought patterns, using open communication with supports, and not shutting down. Pt could also benefit from processing grief from this past summer with losing two family members. Discharge Recommendations/Instructions:: Pt has already established outpatient counseling and psychiatry back at her home state of [place]. Pt states she could set appointment to see counselor when she is home for winter break for the next month. Pt had previously been provided several outpatient counseling resources locally in [place] but did not establish with anyone. Pt states when returns from break she will set appointment with outpatient counseling. Pt also wants to join [facility] aftercare group program in May 2021 when returns to [place] from winter break. Discharge Handout: Complete Discharge Handout with client on aftercare options and continuity of care.
== END 2021-05-01 13:10 | disposition home or self-care (01) ==
LOC: BHIOP 09:00
PROVIDERS: Referring Provider Psychiatry & Neurology Psychiatry; Visit Provider Psychiatry & Neurology Psychiatry
DX: F33.2 Major depressive disorder, recurrent severe without psychotic features (principal); F41.8 Other specified anxiety disorders; Z79.899 Other long term (current) drug therapy
CPT/HCPCS: S9480; 90837; 90853

== ENCOUNTER → 2021-04-27 11:15 | Outpatient (CLI) | payer BC, SELFPAY | PROVIDERS: Visit Provider Family Medicine | DX: Z23 Encounter for immunization (principal) ==

== ENCOUNTER 2021-06-11 14:06 | Outpatient (RCR) | payer BC, SELFPAY ==
--- NOTE | 2021-06-11 14:00 | BH.SGPN.GN ---
Behaviors/Verbalizations/Mental Status: []Client alert and oriented, casually dressed. Eye contact good. Motor activity appropriate. Speech within normal limits. Affect constricted, mood euthymic and anxious. Thoughts linear, logical, no signs of hallucinations or delusions. Client Response/Progress/Benefit: []Pt responded well to session AEB providing input during discussion and listening attentively to peers. Pt reported mental health positives as successfully transitioning back to academics following winter break, engaging in continued self-care, and setting boundaries with toxic people in her life. Noted current stressor as continuing to accept and work through the changes in her friendships, but shared use of thought challenging and reminding herself of the need for boundaries to aid in doing so. Pt engaged in discussion about self-love and worked with group to identify strategies to increase self-love. Pt reported she wants to work on self-love by working on continuing to respect her own boundaries and make additional steps in removing toxic supports. Pt seemed to benefit from reviewing treatment progress and stressors as well as learning about how to increase self-love. Pt to continue aftercare program to maintain treatment progress, continue use of healthy coping, and prevent decompensation. Narrative Note: []
--- NOTE | 2021-06-11 15:27 | BH.MTP_ITS ---
Master Treatment Plan - Patient Information Program Physician:: Dr. Alissa Garrett Primary Therapist:: Kimberly Granda [facility] - Psychiatric Diagnoses Psychiatric Diagnoses:: 1. Major depressive disorder, recurrent, severe without psychosis. 2. Generalized anxiety disorder. 3. Rule out borderline personality disorder. 4. Primary support, school issues Diagnosis Code(s):: F 33.2 - Estimated LOS Estimated LOS (in weeks):: 10 Problem/Goal #1 - Problem/Goal #1 Stated Goal:: Client will maintain or see a reduction in symptoms AEB client score on the DSM 5 cross-cutting measure and improve client's daily functioning. - Objectives Objective #1 Stated Objective: Client will continue to consistently apply healthy coping skills to maintain progress made in IOP tx. Interventions: Through group therapy, client will review warning signs and triggers as well as healthy coping skills learned in IOP tx to successfully maintain gains while transitioning into outpatient therapy. Discharge Criteria: Client will have accomplished this goal when client's score on the DSM-5 cross-cutting measure has either maintained or reduced over a 10 week period. Target Date: 08/13/21 Review Date: 07/02/21 Objective #2 Stated Objective: Client will learn and utilize 2-3 maintenance strategies to prevent decompensation. Interventions: Through group therapy, client will be provided with education on healthy maintenance behaviors, relapse prevention techniques, and healthy coping strategies. Discharge Criteria: Client will have accomplished this goal when can report using at least 2 maintenance skills to prevent decompensation. Target Date: 08/13/21 Review Date: 07/02/21
== END 2021-06-15 23:59 ==
LOC: BHOG 14:06
PROVIDERS: Referring Provider Psychiatry & Neurology Psychiatry; Visit Provider Psychiatry & Neurology Psychiatry
DX: F33.2 Major depressive disorder, recurrent severe without psychotic features (principal); F41.8 Other specified anxiety disorders
CPT/HCPCS: 90853

== ENCOUNTER 2021-06-16 07:41 | Outpatient (RCR) | payer BC, SELFPAY ==
--- NOTE | 2021-06-16 13:23 | BH.MTP ---
Master Treatment Plan - Patient Information Program Physician:: Dr. Alissa Garrett Primary Therapist:: Chantal Granda [facility] - Estimated LOS Estimated LOS (in weeks):: 10 Problem/Goal #1 - Problem/Goal #1 Stated Goal:: Client will maintain or see a reduction in symptoms AEB client score on the DSM 5 cross-cutting measure and improve client's daily functioning. - Objectives Objective #1 Stated Objective: Client will continue to consistently apply healthy coping skills to maintain progress made in IOP tx. Interventions: Through group therapy, client will review warning signs and triggers as well as healthy coping skills learned in IOP tx to successfully maintain gains while transitioning into outpatient therapy. Discharge Criteria: Client will have accomplished this goal when client's score on the DSM-5 cross-cutting measure has either maintained or reduced over a 10 week period. Target Date: 08/13/21 Review Date: 07/02/21 Objective #2 Stated Objective: Client will learn and utilize 2-3 maintenance strategies to prevent decompensation. Interventions: Through group therapy, client will be provided with education on healthy maintenance behaviors, relapse prevention techniques, and healthy coping strategies. Discharge Criteria: Client will have accomplished this goal when can report using at least 2 maintenance skills to prevent decompensation. Target Date: 08/13/21 Review Date: 07/02/21
--- NOTE | 2021-06-25 14:00 | BH.SGPN.GN ---
Behaviors/Verbalizations/Mental Status: []Client alert and oriented, casually dressed and groomed. Eye contact good. Motor activity appropriate. Speech within normal limits. Affect congruent, mood anxious and dysthymic. Thoughts linear, logical, no signs of hallucinations or delusions. Client Response/Progress/Benefit: []Client responded well to session, engaged throughout. Client discussed with the group recent stressor of adjusting to an increased schoolwork load, as well as worrying about a close friend?s mental health. Worked with group to identify importance of self-care and healthy boundary setting as she addresses these stressors. Shared utilizing skills such as taking breaks as needed, focusing on her goals, and challenging her negative thoughts which has been helpful. Client participated in the group discussion of maintenance and the benefits of creating a maintenance plan. Client contributed as the group discussed what components make up a maintenance plan. Client created her own maintenance plan for depression. Client identified warning signs which included: isolation, avoidance of tasks, not wanting to be touched, racing thoughts, and increased anxiety. Client's coping skills included: maintaining a consistent routine, communicating with supports, socializing with others, taking breaks, and reminding herself of her goals. Appeared to benefit from creating a maintenance plan to promote gains and prevent setbacks. Will continue aftercare next week. Narrative Note: []
--- NOTE | 2021-07-09 14:00 | BH.SGPN.GN ---
Behaviors/Verbalizations/Mental Status: []Client alert and oriented, casually dressed and groomed. Eye contact good. Motor activity appropriate. Speech within normal limits. Affect congruent, mood euthymic. Thoughts linear, logical, no signs of hallucinations or delusions. Client Response/Progress/Benefit: []Client responded well to session AEB sharing and listening attentively to others. Client reported her emotion as ?persistent?. Client discussed helping her friend through a hard time, providing them with advice regarding healthy coping skills. Client discussed feeling anxious as she has a lot of school work and is experiencing car trouble. Client stated that she has been coping with this by not dwelling and setting small goals for herself. Client participated in group discussion of gratitude and the importance of practicing both internal and external gratitude into your routine. Client completed a one-week gratitude challenge schedule, setting a goal to focus on both internal and external by appreciating her family, her body, and something that she does not excel at. Appeared to benefit from increased knowledge of the internal and external gratitude in relation to mental health and increased self-awareness. Client to continue aftercare group to promote gains and reinforce healthy coping skills. Narrative Note: []
--- NOTE | 2021-07-09 14:11 | BH.TPR ---
Treatment Plan Review Date of Admission:: 06/11/21 Date of Treatment Plan Review:: 07/09/21 Admitting Diagnoses:: Major depressive disorder, recurrent, severe without psychosis F 33.2; Generalized anxiety disorder; Rule out borderline personality disorder; Primary support, school issues Current Diagnoses:: Major depressive disorder, recurrent, severe without psychosis F 33.2; Generalized anxiety disorder; Rule out borderline personality disorder; Primary support, school issues Patient's Response to Treatment:: Pt responding well to treatment AEB pt's mostly consistent attendance, active engagement in group discussions, and reporting use of skills outside treatment environment. Pt continues to report struggling with negative thinking and setting healthy boundaries at times. Status of Current Problems and Symptoms: Pt currently reports stressors of helping a friend who is struggling, school stressors, and increased anxiety. Pt reports current issues with sleep per her DSM-5 assessment and feeling worried and anxious nearly every day. Problem #1 Problem Name:: Pt will maintain or see a reduction in sx compared to IOP admission scores Status of Goals:: Obj 1 ? partially complete, ongoing work encouraged. Pt?s scores for depression and anger remain the same since discharge from [facility] level of care. Pt's scores for anxiety have increased since IOP discharge, but pt has been able to prevent decompensation AEB pt's current scores for anxiety being 33% lower than they were at IOP admission. Obj 2 - complete with ongoing work encouraged. Pt reports mostly consistent application of self-care, setting small goals, journaling, and challenging negative thoughts. Team Recommendations:: Recommended pt continue IOP aftercare group in addition to attending regular outpatient counseling in order to maintain gains.
== END 2021-07-13 23:59 ==
LOC: BHOG 07:41
PROVIDERS: Referring Provider Psychiatry & Neurology Psychiatry; Visit Provider Psychiatry & Neurology Psychiatry
DX: F33.2 Major depressive disorder, recurrent severe without psychotic features (principal); F41.8 Other specified anxiety disorders
CPT/HCPCS: 90853

== ENCOUNTER 2021-07-14 07:54 | Outpatient (RCR) | payer BC, SELFPAY ==
--- NOTE | 2021-07-16 14:00 | BH.SGPN.GN ---
Behaviors/Verbalizations/Mental Status: []Client alert and oriented, casually dressed and groomed. Eye contact good. Motor activity appropriate. Speech within normal limits. Affect congruent, mood euthymic. Thoughts linear, logical, no signs of hallucinations or delusions. Client Response/Progress/Benefit: []Client responded well to session AEB listening attentively to others and sharing. Client reported her emotion as ?indifferent?. Client discussed that she is working on balancing her school workload, and is looking forward to going home for spring. Client stated that she has been having trouble sleeping, and was receptive to feedback from others on healthy sleep strategies. Client reported keeping her routine and seeing her family as self care activities for the next week. Client participated in group discussion defining self compassion, reviewing the three villalta elements, and identifying what self compassion is not. Client completed exercise working through a past situation where they could have benefited from self compassion. Client identified not reaching her weekly goals and sleeping instead. Client applied self-compassion to this situation, stating ?It?s ok to take breaks, I?m making progress toward my larger goal but I can?t take on all of my responsibilities immediately?. Appeared to benefit from increased knowledge of self compassion and increased self awareness. Will continue aftercare treatment to continue promoting realistic goal setting and promote gains. Narrative Note: []
--- NOTE | 2021-07-23 14:00 | BH.SGPN.GN ---
Behaviors/Verbalizations/Mental Status: []Client alert and oriented, casually dressed and groomed. Eye contact good. Motor activity appropriate. Speech within normal limits. Affect congruent, mood euthymic. Thoughts linear, logical, no signs of hallucinations or delusions. Client Response/Progress/Benefit: []Client responded well to session AEB providing input and listening attentively to peers. Reported feeling ?happy but not overly excited? today as client has been busy preparing for her upcoming spring break from school. Shared she has been maintaining consistent appointments with outpatient providers and is actively using skills of deep breathing, thought challenging, communicating with supports, and taking breaks as needed to maintain the progress made while in IOP tx. Client engaged in discussion on self-advocacy. Worked with group to identify the benefits of self-advocacy, as well as common barriers. Reviewed the personal bill of rights and shared belief that she does well to remind herself of her right to ?follow my own values and standards?. Worked with group to identify strategies to increase ability to advocate for oneself. Reported she wants to work on advocating for herself by reminding herself that she has the right to ?to be playful and frivolous?. Noted plans to take steps in practicing this by challenging herself to take time to give herself permission to so something fun each day. Client seemed to benefit from reviewing treatment progress and skill application, as well as learning about how to increase self-advocacy. Client to continue aftercare to promote gains, prevent regression, and further improve functioning. Narrative Note: []
--- NOTE | 2021-08-13 14:00 | BH.SGPN.GN ---
Behaviors/Verbalizations/Mental Status: []Client alert and oriented, casually dressed and groomed. Eye contact good. Motor activity appropriate. Speech within normal limits. Affect congruent, mood euthymic. Thoughts linear, logical, no signs of hallucinations or delusions. Client Response/Progress/Benefit: []Client responded well to session AEB sharing and listening attentively to others. Client reported using opposite action, deep breathing, and communicating with her supports this week as coping skills. Client reports seeing her outpatient individual therapist last week, and having appointments with an EMDR therapist and psychiatrist next month. Client reports taking medications consistently. Client participated in group discussion of healthy decision making, including what goes into making a healthy decision and what keeps us from making them. Client participated in experiential small group activity and processing. Client identified physical and mental self-care as areas of life she would like to make healthier decisions. Client?s goal to work toward making healthier decisions this week is to stick to a more specific schedule to allow for more self-care. Appeared to benefit from increased knowledge of healthy decision making. Will continue aftercare treatment to reinforce application of self-care and promote gains. Narrative Note: []
== END 2021-08-13 23:59 ==
LOC: BHOG 07:54
PROVIDERS: Referring Provider Psychiatry & Neurology Psychiatry; Visit Provider Psychiatry & Neurology Psychiatry
DX: F33.2 Major depressive disorder, recurrent severe without psychotic features (principal); F41.8 Other specified anxiety disorders
CPT/HCPCS: 90853

== ENCOUNTER 2021-08-14 10:35 | Outpatient (RCR) | payer BC, SELFPAY ==
--- NOTE | 2021-08-27 14:00 | BH.SGPN.GN ---
Behaviors/Verbalizations/Mental Status: []Client alert and oriented, casually dressed and groomed. Eye contact fair. Motor activity appropriate. Speech within normal limits. Affect constricted, mood euthymic. Thoughts linear, logical, no signs of hallucinations or delusions. Client Response/Progress/Benefit: [] Pt responded well to session, engaged and remaining attentive and willing to participate in discussion throughout. Pt reported has not seen therapist this week but has appointment next week. Pt stated she has been consistently taking medications. Pt reported to manage various stressors in the last two weeks she has utilized time management, setting realistic expectations, communication, and focusing on one task at a time. Pt reported she has been busy and stressed but does believe overall she is managing her mental health more effectively. Pt reports connecting with the topic of routine and structure and it?s importance in ongoing mental health maintenance. Pt engaged in brainstorming of various daily routine ideas. Pt completed task of identifying current routine practices as well as important tasks to begin more regularly implementing into a structured daily routine. Pt seemed to benefit from support from peers and learning about benefits of routine. Pt to continue aftercare group to promote ongoing use of healthy coping, continue to use open communication, and prevent decompensation.
--- NOTE | 2021-09-10 15:14 | BH.DS ---
Discharge Summary - Demographics Date of Admission:: 06/11/21 Discharge Date: 09/10/21 Presenting Problems at Admission:: Pt discharged from IOP tx and transitioned to IOP aftercare to maintain gains Pt made in IOP and to reinforce healthy coping skills. At admission to IOP aftercare, pt continued to endorse mild symptoms of anxiety, depression, and irritability. Pt was also experiencing stressors with interpersonal relationships, college, and negative thought patterns. Discharge Diagnoses:: Major depressive disorder, recurrent, severe without psychosis F33.2; Generalized anxiety disorder; Rule out borderline personality disorder. Reason for Discharge:: Pt has accomplished tx goals AEB ability to maintain mood stability and gains made in IOP. Pt's DSM-5 scores decreased by an additional 34% post IOP admission. - Treatment Progress During Treatment & Response: Pt responded well and made progress in IOP aftercare as evidenced by pt's participation in group discussions and self-report of consistently applying coping skills. Pt's overall DSM-5 scores decreased by 34% from IOP admission. Pt?s depression decreased by 13% since IOP admission and pt?s anxiety decreased by 33% since IOP admission. Additionally, at discharge Pt was reporting an improved mood, better communication skills, consistent use of healthy coping skills, and improved ability to function. Issues Still to be Addressed:: Pt could benefit from continued work on identifying and challenging distorted thought patterns, using open communication with supports, and not shutting down. Discharge Recommendations/Instructions:: Pt will not be following up with counseling this summer as pt received a research kassie and will be spending the summer abroad. When pt returns to [place] in the fall, pt will continue with counseling through [facility]. Discharge Handout: Complete Discharge Handout with client on aftercare options and continuity of care.
--- NOTE | 2021-09-11 14:00 | BH.SGPN.GN ---
Behaviors/Verbalizations/Mental Status: []Client alert and oriented, casually dressed. Eye contact good. Motor activity appropriate. Speech within normal limits. Affect constricted, mood euthymic. Thoughts linear, logical, no signs of hallucinations or delusions. Client Response/Progress/Benefit: []Pt responded well to session AEB pt providing input during discussion and listening attentively to peers. Pt shared she met with her trauma therapist last week. Stated she will not be having therapy in the summer because just got accepted for a research kassie in which she [place] be in different [place] 2 [place]2 months. Receptive to feedback from therapist about importance of finding time for self-care and consistently using her skills. Pt stated she has been very busy because getting towards end of semester. Reported using opposite action, planning and taking breaks as a way to manage stress. Pt engaged in discussion about self-love. Connected with others that engaging in self-love is not something she has been doing often. Pt worked with group to identify strategies to increase self-love. Pt stated wanting to work on self-love by identifying daily gratitude. Pt seemed to benefit from reviewing treatment progress and stressors as well as learning about how to increase self-love. Pt has completed the aftercare program and will discharge today.
== END 2021-09-11 06:56 | disposition home or self-care (01) ==
LOC: BHOG 10:35
PROVIDERS: Referring Provider Psychiatry & Neurology Psychiatry; Visit Provider Psychiatry & Neurology Psychiatry
DX: F33.2 Major depressive disorder, recurrent severe without psychotic features (principal); F41.1 Generalized anxiety disorder
CPT/HCPCS: 90853

== ENCOUNTER 2022-03-13 22:19 | Emergency (ER) | payer BC, SELFPAY ==
[2022-03-13 22:20] VITALS: BP 109/77; PULSE 100; RESP 18; TEMP 36.6; O2SAT 100; BMI 27.4
--- NOTE | 2022-03-13 23:12 | CT_ITS ---
EXAM: CT MAXILLOFACIAL WITHOUT INTRAVENOUS CONTRAST CLINICAL INDICATION: injury TECHNIQUE: Helically acquired images were obtained of the face without intravenous contrast. This CT exam was performed using one or more of the following dose reduction techniques: automated exposure control, adjustment of the mA and/or kV according to patient size, and/or use of iterative reconstruction technique. This report was created using [employer] report generation technology. RADIATION DOSE: CTDIvol = 29.38 mGy, DLP = 642.95 mGy-cm. COMPARISON: None. FINDINGS: BONES/JOINTS: Unremarkable. No displaced fracture. No discrete lytic or blastic abnormalities. SOFT TISSUES: Unremarkable. No focal subcutaneous swelling. No discrete fluid collections. ORBITS: Unremarkable. Both globes are unremarkable. Extraocular muscles are normal. Retrobulbar fat appears unremarkable. SINUSES: Small fragments at the tip of the nasal bridge appears sclerotic and likely chronic. Small mucous retention cyst in the right maxillary sinus. Otherwise unremarkable sinuses. MASTOID AIR CELLS: Unremarkable as visualized. Clear. DENTAL: No acute findings. No periodontal osseous erosion. CT/Sinus/Facial Bone IMPRESSION: No acute fracture. Slightly sclerotic tip of the nasal bridge. Small mucous retention cyst in right maxillary sinus. Minimal if any facial soft tissue contusions. Electronically Signed: Hope Barton MD at 0:20 EDT ,
--- NOTE | 2022-03-13 23:13 | EDS_ITS ---
HPI History of Present Illness Chief Complaint: Other, Pain/Inj Informant: patient Narrative Narrative: Presents for evaluation head injury left thumb injury 2 hours ago while playing rugby. She was then apologetic of knee to the right eye. No loss of conscious. Headache. No neck pain. [id number], left thumb pain. History of concussions in the past. No anticoagulation medicines. History of ADHD on medications. [facility] Medical History Borderline personality disorder Generalized anxiety disorder Major depressive disorder, recurrent severe without psychotic features Home Medications Control 1 tab PO DAILY 03/04/19 [History Last Taken Unknown] Allergy/AdvReac Type Severity Reaction Status Date / Time No Known Allergies Allergy Verified 03/13/22 22:22 Social History Smoking Status: Never smoker ROS ROS ED Constitutional Constitutional ED: Denies chills, fever(s) or sweats Eyes Eyes: Denies change in vision ENT ENT ED: Denies dysphagia or sore throat Cardiovascular Cardiovascular: Denies chest pain, leg edema, palpitations or racing heartbeat Respiratory/Chest Respiratory/Chest: Denies cough, dyspnea or dyspnea on exertion Gastrointestinal Gastrointestinal: Denies abdominal pain, diarrhea, nausea or vomiting Genitourinary Genitourinary ED: Denies dysuria, hematuria or urinary frequency Musculoskeletal Musculoskeletal: Reports extremity pain and other Details: Left thumb pain ; Denies back pain or neck pain Integumentary Denies rash or wounds Neurologic Neurologic: Reports headache(s); Denies paresthesias or weakness EXAM Physical Exam Const Vital Signs: 03/13/22 22:20 03/14/22 00:43 Temperature 97.9 F Temperature Source Temporal Pulse Rate 100 Respiratory Rate 18 18 Blood Pressure 109/77 Blood Pressure Mean 87 Pulse Ox 100 Oxygen Delivery Method Room Air Positive well nourished and well developed Constitutional Narrative: GCS 15. General Appearance ED: well developed and NAD HEENT Reports moist mucous membranes HEENT Narrative: Tender palpation right inferior orbital. No proptosis or entrapment. No hemotympanums. No septal hematoma. No nasal bridge tenderness. normocephalic Eyes PERRL, EOMs intact bilaterally and conjunctivae normal General Eye ED: Yes normal appearance of both eyes Neck full ROM, no lymphadenopathy and supple Neck Narrative: No midline tenderness or step-offs. No meningismus. General: Negative for tenderness Chest Wall Chest: Negative for tenderness Resp normal respiratory effort and normal air movement Effort and Inspection: symmetric chest movement; Negative for respiratory distress Cardio regular rate, regular rhythm and no murmurs Peripheral Pulses: pulses 2+ throughout GI normal to inspection, nondistended, normoactive bowel sounds and non-tender Palpation: Negative for guarding or rebound tenderness present Back/Spine no CVA tenderness and no thoracic nor lumbar tenderness Extremity normal to inspection Extremity Narrative: Left hand: No deformities, mild tenderness to valgus stress of the MCP of the thumb. General Extremety ED: Negative for edema or tenderness General Extremity: Negative for edema Neuro oriented x3, CN's II-XII intact bilaterally and no sensory deficits noted Sensorium / Orientation: awake and alert Skin no rashes or lesions noted and no wounds MDM MDM MDM Narrative Medical decision making narrative: Head injury with concussion symptoms. Nexus CT head criteria negative. Exam with tenderness around the right orbital there is no proptosis or entrapment. With tenderness CT facial bones obtained showed no fractures. Left hand x-ray 3 views reviewed by myself read by radiology negative for any acute fractures. Reported mild asymmetry distal fourth digit. Patient nontender to this area reported previous fracture. Discussed thumb sprain. Thumb spica provided for comfort. She treated with Tylenol. Concussion precaution discussed. Sports note was given with concussion information sent home. She will need clearance from physician prior to returning to sports. All questions were answered. Radiography Diagnostic Testing: Clinical Impression(s) from Imaging Studies Facial/Sinus 03/13/22 23:12 IMPRESSION: No acute fracture. Slightly sclerotic tip of the nasal bridge. Small mucous retention cyst in right maxillary sinus. Minimal if any facial soft tissue contusions. Electronically Signed: Hope Barton MD at 0:20 EDT , Hand X-Ray 03/13/22 23:26 IMPRESSION: Mild asymmetry of joint space and possibly subtle fracture versus degenerative change involving fourth DIP joint. Please correlate with location of pain. Electronically Signed: Hope Barton MD at 0:24 EDT , Discharge Plan Triage Chief Complaint: Other, Pain/Inj ED Provider: Tu Ly Dx/Rx/DC Orders Clinical Impression: Concussion, Contusion of face, Left thumb sprain Instructions: Concussion Dc, ED Finger Sprain Prescriptions: No Action Control 1 tab PO DAILY Primary Care Provider: Care Physician,No Primary Referrals: Care Physician,No Primary [Primary Care Provider] - Activity Restrictions/Additional Instructions: CT facial bones negative. Left hand x-ray negative. Tylenol 1 g as needed. Concussion precautions. No return to contact sports until cleared by physician. Should be symptom-free for a week prior to return. Disposition Disposition: Home, Self Care Discharge Date/Time: 03/14/22 00:49
[2022-03-13] MEDS: Acetaminophen 500 MG Tablet 1000 MG PO (23:19)
--- NOTE | 2022-03-13 23:26 | RAD_ITS ---
EXAM: XR LEFT HAND COMPLETE, 3 OR MORE VIEWS CLINICAL INDICATION: injury TECHNIQUE: Frontal, lateral and oblique views of the left hand. This report was created using [employer] report generation technology. COMPARISON: None. FINDINGS: BONES/JOINTS: Mild asymmetric joint space of the fourth DIP joint, correlate with location of pain. A discrete fracture is not identified. Possibly degenerative change. No sclerotic or destructive changes observed. SOFT TISSUES: Unremarkable. No soft tissue swelling or gas. No radiopaque foreign body. RAD/Hand Min 3 Views IMPRESSION: Mild asymmetry of joint space and possibly subtle fracture versus degenerative change involving fourth DIP joint. Please correlate with location of pain. Electronically Signed: Hope Barton MD at 0:24 EDT ,
[2022-03-14 00:43] VITALS: RESP 18
== END 2022-03-14 00:49 | disposition home or self-care (01) ==
PROVIDERS: Emergency Provider Emergency Medicine; Visit Provider Emergency Medicine
DX: S06.0X0A Concussion without loss of consciousness, initial encounter (principal); S00.83XA Contusion of other part of head, initial encounter; S63.602A Unspecified sprain of left thumb, initial encounter; Y93.63 Activity, rugby
CPT/HCPCS: 70486; 73130; 99283